=== PATIENT | female | born 1930 | race Caucasian/White ===

== ENCOUNTER 2016-12-16 13:53 | Emergency (ER) | payer MEDICARE, MEDICAID ==
[~2016-12-16] VITALS: Ht 157.4 cm; Wt 56.7 kg
[~2016-12-16 13:53] MED LIST: ALPRAZOLAM0.25 M2 PO; AMLODIPINE BESY10 MG PO; ASPIRIN ADULT L81 M2 PO; ASPIRIN81 M1 PO; ATOXIMETIN-B1 CAP PO; CALCIUM500 M1 PO; COUMADIN2 MG PO; COUMADIN2.5 M1 PO; COUMADIN7.5 M1 PO; Coumadin2 MG PO; Coumadin5 MG PO; Coumadin7.5 MG PO; FE-TABS325 MG PO; FEROSUL325 MG PO; FUROSEMIDE40 MG PO; HCTZ PO; K-LOR 20MEQ20 ME1 PO; LANOXIN0.125 MG PO; LISINOPRIL20 MG PO; LOPRESSOR100 MG PO; METOPROLOL TART50 M1 PO; NORCO 5-325 TA1 EACH PO; NORVASC5 MG PO; NOVOLIN R100 U/ML SC; PEPCID AC20 M1 PO; POTASSIUM20 MEQ PO; PREDNISONE5 MG PO; REMERON15 M2 PO; TOPROL XL100 MG PO; TYLENOL325 M1 PO; TYLENOL650 MG R; VANCO 750750 MG/250 IV; VITAMIN C500 M4 PO; VITAMIN D5000 I2 PO; WARFARIN SOD5 MG PO; ZOCOR20 MG PO
[2016-12-16 15:29] LABS: BASO # 0.1 10*3/uL (0.0-0.1); BASO % 0.6 % (0.0-1.0); EOS # 0.5 10*3/uL (0.0-0.4); EOS % 4.5 % (1.0-4.0); HEMOGLOBIN 12.4 g/dl (12.0-16.0); LYMPH # 1.5 10*3/uL (1.3-4.4); LYMPH % 14.5 % (27.0-41.0); MEAN CELL VOLUME 96.7 fl (81.0-99.0); MEAN CORPUSCULAR HGB 31.6 pg (27.0-31.0); MEAN CORPUSCULAR HGB CONC 32.6 g/dl (33.0-37.0); MEAN PLATELET VOLUME 10.3 fl (9.6-12.3); MONO % 9.4 % (3.0-9.0); NEUT # 7.3 10*3/uL (2.3-7.9); NEUT % 70.7 % (47.0-73.0); PLATELET COUNT AUTOMATED 259 10*3/uL (130-400); RED BLOOD COUNT 3.93 10*6/uL (4.10-5.10); RED CELL DISTRI WIDTH 14.4 % (0-14.5); WHITE BLOOD COUNT 10.3 10*3/uL (4.8-10.8)
[2016-12-16 15:40] LABS: PROTHROMBIN TIME 10.7 SECONDS (9.0-12.4)
[2016-12-16 16:02] LABS: ALBUMIN 3.3 gm/dl (3.1-4.5); ALKALINE PHOSPHATASE 80 U/L (45-117); BILIRUBIN, TOTAL 0.6 mg/dl (0.2-1.0); BUN 26 mg/dl (7-24); CARBON DIOXIDE 29 mmol/L (21-32); CHLORIDE 107 mmol/L (98-107); CPK 124 U/L (26-192); EST GLOM FILT AFRICAN AMERICAN > 60 ml/min; GLUCOSE 104 mg/dL (65-99); LDH 248 U/L (84-246); POTASSIUM 4.5 mmol/L (3.5-5.1); SGOT/AST 23 IU/L (3-35); SGPT/ALT 23 U/L (12-78); SODIUM 145 mmol/L (136-145); TOTAL PROTEIN 6.8 gm/dL (6.4-8.2)
[2016-12-16 16:03] LABS: CKMB 3.1 ng/ml (0.5-3.6)
[2016-12-16 16:12] LABS: DIGOXIN 1.49 ng/ml (0.8-2.0)
[2016-12-16 16:15] LABS: TROPONIN I < 0.015 ng/ml (<0.045)
[2016-12-16] MEDS ORDERED: VOLTAREN GEL1% TP (16:37)
== END 2016-12-16 16:55 | disposition home or self-care (01) ==
LOC: ED 13:53
PROVIDERS: Physician Assistant
DX: S70.02XA Contusion of left hip, initial encounter (principal); Z90.49 Acquired absence of other specified parts of digestive tract; W06.XXXA Fall from bed, initial encounter; Y93.84 Activity, sleeping; Y92.009 Unspecified place in unspecified non-institutional (private) residence as the place of occurrence of the external cause; Y99.9 Unspecified external cause status

== ENCOUNTER 2017-05-03 17:21 | Emergency (ER) | payer MEDICARE, MEDICAID ==
[~2017-05-03] VITALS: Ht 157.4 cm; Wt 56.2 kg
[~2017-05-03 17:21] MED LIST changes: +VOLTAREN GEL1% TP
== END 2017-05-03 20:53 | disposition home or self-care (01) ==
LOC: ED 17:21
DX: S00.31XA Abrasion of nose, initial encounter (principal); M25.511 Pain in right shoulder; Z98.890 Other specified postprocedural states; Z90.49 Acquired absence of other specified parts of digestive tract; Z96.652 Presence of left artificial knee joint; Z79.899 Other long term (current) drug therapy; W06.XXXA Fall from bed, initial encounter; Y93.89 Activity, other specified; Y92.89 Other specified places as the place of occurrence of the external cause; Y99.9 Unspecified external cause status

== ENCOUNTER 2017-09-17 12:52 | Emergency (ER) | payer MEDICARE, MEDICAID ==
[~2017-09-17] VITALS: Ht 157.4 cm; Wt 81.6 kg
[2017-09-17 13:23] LABS: BASO # 0.1 10*3/uL (0.0-0.1); BASO % 0.6 % (0.0-1.0); EOS # 0.4 10*3/uL (0.0-0.4); EOS % 3.3 % (1.0-4.0); HEMATOCRIT 36.1 % (37.0-47.0); HEMOGLOBIN 11.7 g/dl (12.0-16.0); LYMPH # 1.8 10*3/uL (1.3-4.4); LYMPH % 14.7 % (27.0-41.0); MEAN CELL VOLUME 96.3 fl (81.0-99.0); MEAN CORPUSCULAR HGB 31.2 pg (27.0-31.0); MEAN CORPUSCULAR HGB CONC 32.4 g/dl (33.0-37.0); MEAN PLATELET VOLUME 10.4 fl (9.6-12.3); MONO % 7.9 % (3.0-9.0); NEUT % 73.1 % (47.0-73.0); PLATELET COUNT AUTOMATED 276 10*3/uL (130-400); RED BLOOD COUNT 3.75 10*6/uL (4.10-5.10); RED CELL DISTRI WIDTH 14.9 % (0-14.5); WHITE BLOOD COUNT 12.3 10*3/uL (4.8-10.8)
[2017-09-17 13:41] LABS: ALBUMIN 3.4 gm/dl (3.1-4.5); ALKALINE PHOSPHATASE 73 U/L (45-117); BUN 30 mg/dl (7-24); CHLORIDE 104 mmol/L (98-107); POTASSIUM 4.1 mmol/L (3.5-5.1); SGOT/AST 18 IU/L (3-35); SGPT/ALT 20 U/L (12-78); SODIUM 142 mmol/L (136-145); TOTAL PROTEIN 6.8 gm/dL (6.4-8.2)
[2017-09-17 13:42] LABS: TROPONIN I 0.037 ng/ml (<0.045)
[2017-09-17 13:53] LABS: DIGOXIN 1.08 ng/ml (0.8-2.0)
[2017-09-17 14:39] LABS: BILIRUBIN NEGATIVE (NEGATIVE); BLOOD NEGATIVE (NEGATIVE); CLARITY CLEAR (CLEAR); COLOR YELLOW (YELLOW); GLUCOSE NEGATIVE (NEGATIVE); KETONE NEGATIVE (NEGATIVE); LEUKO ESTERASE NEGATIVE (NEGATIVE); NITRITE NEGATIVE (NEGATIVE); SPECIFIC GRAVITY 1.025 (1.005-1.030); UROBILINOGEN 0.2 E.U./dl (0.2-1.0)
[2017-09-17 14:55] LABS: BACTERIA TRACE; WBC 0-2 wbc/hpf (0-5)
== END 2017-09-17 15:20 | disposition home or self-care (01) ==
LOC: ED 12:52
PROVIDERS: Nurse Practitioner Family
DX: B34.9 Viral infection, unspecified (principal); R03.0 Elevated blood-pressure reading, without diagnosis of hypertension; I48.91 Unspecified atrial fibrillation; Z79.899 Other long term (current) drug therapy

== ENCOUNTER 2017-09-26 18:35 | Inpatient (IN) | payer MEDICARE, MEDICAID ==
[2017-09-26] VITALS (9 sets, daily range): BP systolic 66–133; BP diastolic 38–69
[~2017-09-26] VITALS: Ht 152.4 cm; Wt 59.0 kg
--- NOTE | ~2017-09-26 | DS ---
[place], [place] DISCHARGE SUMMARY NAME: AYAN ZHENG UNIT #: [id number] ROOM: 408 DOCTOR: TIRSO LLOYDHORTENCIA J BIRTHDATE: [birth year] DOS: 09/29/2017 DISCHARGE DIAGNOSES: 1. The patient with acute hypoxemic respiratory failure and sepsis with bacterial pneumonia, treated. 2. Late onset Alzheimer's type dementia. 3. Benign essential hypertension. 4. Old age and adult failure to thrive. She had multiple falls. 5. Left upper lobe pneumonia with sepsis, leukocytosis, acute kidney failure and sepsis, resolved. 6. Multi-infarct dementia and mental confusion. 7. Type 2 diabetes mellitus. 8. Chronic atrial fibrillation. 9. Coronary artery disease of [place] vessels, without chest pains. HOSPITAL COURSE: The patient is very high risk for falls and head injury and bleeding, so she is not to be anticoagulated. Generalized anxiety disorder. The patient presented to the Emergency Department, brought over for shortness of breath, weakness, lethargy, hypotension and she was found to be septic. The patient had severe leukocytosis and found to have pneumonia. The patient admitted and treated with antibiotics and white cell count has improved. The patient was also followed by dimension specification inspector, Dr. Sanches and now ready to be discharged to [facility]. Adult failure to thrive and recurrent falls. The patient worked with Physical Therapy, which will be continued at residential facility. Multi-infarct dementia and mental confusion. Type 2 diabetes mellitus. Blood sugars were monitored and treated. The patient kept on no concentrated sweet diet. Chronic atrial fibrillation, with heart rate is controlled with digoxin. The patient was not anticoagulated because of her recurrent falls and high risk for head injury and bleeding. Benign essential hypertension, with better controlled blood pressures now. Coronary artery disease of [place] vessels, without chest pains. Benign essential hypertension, with better controlled blood pressures now. Initially, the patient was hypotensive from sepsis and her blood pressure medications were held back, but then later on they were restarted. Hypokalemia from diuresis, level has returned to normal with extra potassium supplements. Blood cultures were negative. LABORATORY DATA: CT of the chest showing some chronic changes in the left upper [place], [place] DISCHARGE SUMMARY NAME: AYAN ZHENG UNIT #: [id number] ROOM: [facility] DOCTOR: TIRSO LLOYD,HORTENCIA Mckeon BIRTHDATE: [birth year] lobe. Normal serum electrolytes. Hemoglobin 11.8, white cell count improved to 14,500. Blood cultures were negative. DISCHARGE MANAGEMENT: Metoprolol 50 mg twice a day, Tradjenta 5 mg a day, lisinopril 20 mg a day, Meloxicam 7.5 mg daily, rivastigmine 3 mg b.i.d. and in 1 month increase it to 6 mg b.i.d., mirtazapine 15 mg at bedtime, digoxin 125 mcg daily, aspirin 81 mg a day, Augmentin 875 mg twice a day for a week. Consult Physical Therapy, take fall precautions and every 2 hour turning. HORTENCIA CHAHAL MD CM:MAIKOL [id number] HORTENCIA CHAHAL MD 09/29/17 2006 interface
--- NOTE | ~2017-09-26 | CON ---
[place], [place] REPORT OF CONSULTATION NAME: AYAN ZHENG [facility] #: [id number] UNIT #: [id number] ROOM: 408 DOCTOR: JOYCE SCHAFFER MD,RUBEN BIRTHDATE: [birth year] DOS: 09/27/2017 PULMONARY CONSULTATION EVALUATION AND MANAGEMENT CONSULTATION REQUESTED BY: Jeovanny Monroe M.D. REASON FOR CONSULTATION: To assess the patient for current acute pneumonia. The consultation does contain medical record of the patient, essentially review of the medical record, the patient's current hospitalization, other physician notes as well as record of the nursing notes. HISTORY OF PRESENT ILLNESS: This is an 87-year-old white female patient who has been admitted to the hospital under care of Dr. Monroe. The patient was brought to the hospital Emergency Room by the family members as the patient has been noted with a gradual increased confusional status for the past Thursday. The symptoms have been noted with gradual worsening. The patient was also noted with symptoms of low grade fever and nonproductive cough as well. The oral intake was also described to be significantly decreased. She has been admitted to the hospital for further medical management. The patient has been assessed in the Emergency Room yesterday and noted with possibility of acute pneumonia for this patient and had been admitted to the hospital for that. The patient is unable to give any history. She has been noted to have a history of multiinfarct dementia. The patient is unable to verbally communicate. When she has been asked the questions though she states yes to every question. She was noted awake and alert. REVIEW OF SYSTEMS: The patient's review of systems cannot be completed because of the history of multiinfarct dementia. PAST MEDICAL HISTORY: 1. Reported history of multiinfarct dementia. 2. Essential hypertension. 3. History of chronic atrial fibrillation as well. SOCIAL HISTORY: The patient was living at home with her granddaughter. Noted nonsmoker lifetime. Denies alcohol or illicit drug use or any occupation related pulmonary exposure was known from the past. PAST SURGICAL HISTORY: Reported: 1. 4 times. 2. Appendectomy. 3. Complete hysterectomy. 4. Left shoulder arthroplasty. 5. Cardiac catheterization and coronary artery stents insertion in 2009. 6. History of coronary artery disease. FAMILY HISTORY: Reported for coronary artery disease, hypertension, and CVA. HOME MEDICATIONS: 1. Noted use of Tylenol No. 1, 650 mg q.6 hours p.r.n. for pain or fever. [place], [place] REPORT OF CONSULTATION NAME: AYAN ZHENG UNIT #: [id number] ROOM: [facility] DOCTOR: JOYCE SCHAFFER MD,RUBEN BIRTHDATE: [birth year] 2. Multivitamin 1 p.o. daily. 3. Lisinopril 40 mg daily. 4. Vitamin C 500 mg p.o. daily. 5. Remeron 15 mg at bedtime. 6. Potassium chloride 20 mEq p.o. daily. 7. Xanax 0.25 mg q.6 hours p.r.n. for anxiety. DRUG ALLERGY HISTORY: No known drug allergies. PHYSICAL EXAMINATION: GENERAL: This is an 87-year-old female who has been currently known to be awake and alert without any acute distress at this time. Height of the patient is recorded 5 feet, weight of 130 pounds, BMI 25.5 recorded. VITAL SIGNS: For the patient, which has been recorded shows the temperature noted as 100.5 degree Fahrenheit on admission. Later the patient was noted to have low grade fever of 99.5 degree Fahrenheit, respiration rate 20-18, heart rate of 99-117, blood pressure of 80/50, the lowest and high blood pressure 154/74. Intake was recorded as 19-20, the output were not recorded, pulse oxygen saturation recorded on room air on admission as 89%, currently on 2 liters 94% saturation. HEENT: Examination shows head was atraumatic. Eyes nonicterus. NECK: Supple. CARDIOVASCULAR: S1, S2 is audible. LUNGS: The patient was noted [id number] decreased breath sounds bilaterally. There were no wheezing or crackles heard. ABDOMEN: Flat, soft, and nontender. Bowel sounds are present. CENTRAL NERVOUS SYSTEM: Unable to assess the patient accurately, but the patient does move the upper and lower extremities. At times, at her own will. SKIN: Visible skin without lesions or rashes. MUSCULOSKELETAL: Without any acute deformities. LABORATORY DATA: CBC of the patient on admission 09/26/2017, the patient noted to have a glucose 274, BUN 27, creatinine 1.41. The sodium of 135. Lactic acid 2.6 noted on admission. CBC on 09/26/2017 on admission, the white count 17.9, hemoglobin and hematocrit normal, platelet count was normal. Follow up lactic acid 1.6 after fluid resuscitation. CBC this morning that was done 22.3, hemoglobin 12.6, hematocrit 34.9, platelet count 120,000. CMP of the patient of 225, BUN 30, creatinine 1.28, glucose 108. CO2 was 19. Chest x-ray of the patient just 1 view done with the patient shows evidence of patchy infiltration of the left upper lobe. IMPRESSION: 1. The patient who has been currently admitted to the hospital with left upper lobe infiltration with acute pneumonia and sepsis as well as acute hypoxic respiratory failure resulting from that as well. She was also noted to have acute kidney injury, organ dysfunction secondary to acute sepsis. 2. The patient with a history of chronic dementia, change in mental status secondary to acute sepsis as well. 3. Decrease her oral intake as well. The patient with acute kidney injury partly because of the intravascular volume depletion as well. [place], [place] REPORT OF CONSULTATION NAME: AYAN ZHENG UNIT #: [id number] ROOM: [facility] DOCTOR: JOYCE SCHAFFER MD,RUBEN BIRTHDATE: [birth year] PLAN OF TREATMENT: Fluid resuscitation will be completed for this patient. Monitor for any fluid overload. She has been started on IV Zosyn and Zithromax. That will get a coverage for the atypical organism, gram-positive organisms as well as anaerobic organism effectively. Repeat another chest x-ray in the morning to assess the progression of the pneumonia radiologically as well. Monitoring all the culture results for the patient. If the patient does expectorate sputum, the sputum could be sent for culture as well. Otherwise, monitoring the blood cultures. Ordered urine for legionella antigen and the strep antigen as well. Titrate oxygen to maintain a pulse ox of 90% or greater. Usual care, other supportive therapy, plan of management and care. Assessment for swallowing of the patient will be done as well. Modified barium swallow for the patient will ordered for the morning as speech therapy consultation will be obtained as well. Thanks for allowing me to participate in the care of this patient. RUBEN COOK MD CM:CONSTR:REPORT OF CONSULTATION 1352 09/28/17 0241 interface
--- NOTE | ~2017-09-26 | PR ---
[place], [place] PROGRESS NOTE NAME: AYAN ZHENG [facility] #: [id number] UNIT #: [id number] ROOM: 408 DOCTOR: JOYCE SCHAFFER MD,RUBEN BIRTHDATE: [birth year] DOS: 09/29/2017 SUBJECTIVE: The patient has been noted comfortable at this time, noted nonverbal because of history of dementia, has not been reported respiratory distress, change in oxygen requirement. She has not been reported any symptoms of hemoptysis by the nursing staff. She has not been noted any symptoms of chest pain as described by the nursing staff. The patient could not have any verbal communication. Review of systems could not be performed. She has been continued on antibiotic intravenously for the acute pneumonia and severe sepsis. OBJECTIVE: VITAL SIGNS: For the patient's, temperature noted low grade as 99.7 degrees Fahrenheit to normal temperature recorded later on after that and this morning respiratory rate 18, heart rate of 84, blood pressure of 175/83-158/82. Pulse oxygen saturation noted on 2 L nasal cannula 95% saturation. HEENT: Shows head was atraumatic. Eyes nonicterus. NECK: Supple. CARDIOVASCULAR: S1, S2 is audible. LUNGS: The patient was noted without any crackles or wheezing at the present time. ABDOMEN: Noted flat, soft, nontender. Bowel sounds present. EXTREMITIES: The patient was noted without any edema at the present time. MUSCULOSKELETAL: No deformities. CENTRAL NERVOUS SYSTEM: Noted nonfocal since the patient able to move the upper and lower extremities at her own will. LABORATORY DATA: The chest x-ray that was done this morning for the patient shows left upper lobe infiltration was not noted with simple question of infiltration in the left lower lobe was also seen. Bilateral prominent hilar area was also noted. There were no findings of the patient noted of any pleural effusion at least clinically. IMPRESSION: The patient with acute pneumonia with severe sepsis at this time with additional infiltration may be noted in the right lower lobe and resolution of the patchy infiltration of left upper lobe, which was previously noted on one view chest x-ray. Prominent hilar area as well. History of chronic dementia. The patient was still noted with low-grade fever and also noted heart rate elevated at 110 seconds to that. PLAN OF MANAGEMENT: For further clarification, to assess if there is any atelectasis developed in other area. CT scan of chest has been ordered to be done without contrast. Based on the review of the CT scan of the chest, the patient's medical management will be recommended without any changes. The antibiotic continuity is to be the same for the patient at this time. Usual care, other supportive therapy, plan of management and care. [place], [place] PROGRESS NOTE [facility]: [id number] UNIT #: [id number] ROOM: [facility] DOCTOR: RUBEN CHEEK MD BIRTHDATE: [birth year] RUBEN COOK MD CM:PNTRANS [id number] RUBEN SCHAFFER MD 09/29/17 2337 interface
--- NOTE | ~2017-09-26 | PR ---
[place], [place] PROGRESS NOTE [id number] UNIT #: [id number] ROOM: 408 DOCTOR: HORTENCIA CHAHAL MD BIRTHDATE: [birth year] DOS: 09/28/2017 SUBJECTIVE: The patient is starting to feel better working with physical therapy. OBJECTIVE: VITAL SIGNS: Blood pressure 165/75, heart rate 92 beats per minute, breathing 18 times per minute, temperature of 98.3 degrees Fahrenheit. GENERAL APPEARANCE: Obesity and generalized weakness and the patient is pleasantly confused. HEENT AND NECK: Exam within normal limits. CARDIOVASCULAR SYSTEM: Heart rate is regular in rate and rhythm. S1 and S2 normally audible. LUNGS: Clear to auscultation. ABDOMEN: Soft, nontender. No obvious organomegaly. Bowel sounds are present. EXTREMITIES: Without significant cyanosis or edema. IMPRESSION AND PLAN: 1. Benign essential hypertension with elevated blood pressures. I will restart her metoprolol. 2. Old age and adult failure to thrive. The patient normally stays at home with her great granddaughter who takes good care of her. The patient is working with Physical Therapy. She had multiple falls. 3. Left upper lobe pneumonia with sepsis, leukocytosis and acute kidney failure from sepsis, all resolving with treatment. 4. Multi-infarct dementia and mental confusion. The patient remains on Exelon, the dose has been increased. 5. Type 2 diabetes mellitus. Blood sugars are being monitored and treated and the patient on a sugar gluten-free diet. 6. Chronic atrial fibrillation, with heart rate controlled with digoxin. The patient is not a good candidate for anticoagulation because of her multiple falls and high risk for head injury and bleed. HORTENCIA CHAHAL MD CM:PNTRANS [id number] HORTENCIA CHAHAL MD 09/28/17 1312 interface
--- NOTE | ~2017-09-26 | WRIGHTHP ---
[place], [place] PATIENT HISTORY AND PHYSICAL EXAM NAME: AYAN ZHENG [facility] #: [id number] UNIT #: [id number] ROOM: 408 DOCTOR: HORTENCIA CHAHAL MD BIRTHDATE: [birth year] DOS: 09/26/2017 HISTORY OF PRESENT ILLNESS: The patient is an 87-year-old female with a past medical history of: 1. Adult failure to thrive and old age. 2. Chronic atrial fibrillation. The patient is not a good candidate for anticoagulation because of her recurrent injuries. 3. Multi-infarct dementia. 4. History of coronary artery disease of [place] vessels. 5. Benign essential hypertension. 6. Generalized anxiety disorder. The patient presented to the Emergency Department with few days of increasing shortness of breath, weakness, lethargy and she was brought to the Emergency Department from home where she was taken care of by her great granddaughter. In the ER, patient was found to be hypotensive, lethargic and very weak with pneumonia and sepsis with severe leukocytosis. The patient maintained a DNR/comfort care code status, which was confirmed by her family and she was admitted to a regular bed and started on hydration with normal saline and IV antibiotics. After admission, the patient is becoming more alert, but she is weak and unable to provide much history. No complaints of chest pains. No GI or urinary symptoms. REVIEW OF SYSTEMS:. LUNGS: Increased shortness of breath. GASTROINTESTINAL: No nausea, vomiting, diarrhea or constipation, but reduced appetite. CARDIOVASCULAR: No chest pains or palpitations. SOCIAL HISTORY: The patient lives at home with help of her great granddaughter. Denies smoking cigarettes, alcohol and drug abuse. FAMILY HISTORY: Noncontributory. HOME MEDICATIONS: Tradjenta, lisinopril, meloxicam, rivastigmine, mirtazapine, digoxin, aspirin. PHYSICAL EXAMINATION: GENERAL: Awake, alert, pleasantly confused, in no visible distress, generalized weakness and muscle wasting. HEENT AND NECK: Extraocular movements are intact. Sclerae are anicteric. Oral mucosa is moist and clean. No obvious facial weakness. Neck is supple without any lymphadenopathy. No thyromegaly. No JVD. No carotid arterial bruits. LUNGS: Clear to auscultation. No wheezing. No rhonchi. CARDIOVASCULAR SYSTEM: Heart rate is irregularly irregular in rate and rhythm. ABDOMEN: Soft, nontender. No obvious organomegaly. Bowel sounds are present. No obvious herniation. EXTREMITIES: Without significant cyanosis or edema. Warm to touch. CENTRAL NERVOUS SYSTEM: Alert and oriented x 3. Cranial nerves II-XII are intact. Speech is normal. The patient is able to move all extremities. Normal [place], [place] PATIENT HISTORY AND PHYSICAL EXAM NAME: AYAN ZHENG UNIT #: [id number] ROOM: [facility] DOCTOR: HORTENCIA CHAHAL MD BIRTHDATE: [birth year] muscle strength. Deep tendon reflexes are equal on both sides. Plantars were downgoing. LABORATORY DATA: White cell count elevated to 22,300, normal platelets. BUN and creatinine 27 and 1.4, otherwise normal serum electrolytes. IMPRESSION: 1. The patient is old aged and adult failure to thrive. We will get patient to work with Physical Therapy and take fall and bedsore precautions including every 2 hour turning and use an air mattress. 2. Left upper lobe pneumonia with sepsis, leukocytosis and acute kidney failure related to sepsis, is being treated with normal saline and hydration and the patient appears to be clinically improving. The patient also had an elevated lactic acid level of up to 3.5, which has returned to normal with treatment. 3. Multi-infarct dementia. The patient remains on Exelon, which helps her. I will increase the dose. 4. Type 2 diabetes mellitus. Blood sugars will be monitored and treated and she will be kept on no concentrated sweet diet. 5. Chronic atrial fibrillation, heart rate controlled with digoxin. The patient was not kept on any anticoagulation because she is a very high risk and falls repeatedly. She is very high risk for falls and serious bleeding including head injury. 6. Benign essential hypertension. Blood pressures are being monitored and controlled. I will restart her lisinopril because blood pressures are increasing. Metoprolol still on hold. 7. Situation discussed with her great granddaughter in detail today and we will try to get her to jail facility for physical therapy after completing her treatment at the hospital. The patient maintains a do not resuscitate/comfort care code status. HORTENCIA CHAHAL MD CM:HISPHYS:PATIENT HISTORY AND PHYSICAL EXAMINATION [id number] HORTENCIA CHAHAL MD 09/27/17 1703 interface
--- NOTE | ~2017-09-26 | PR ---
[place], [place] PROGRESS NOTE [id number] UNIT #: [id number] ROOM: [facility] DOCTOR: JOYCE SCHAFFER MD,RUBEN BIRTHDATE: [birth year] DOS: 09/28/2017 SUBJECTIVE: The patient was seen and examined on 09/28/2017. She has been noted comfortable at this time, resting on her bed. She has not been noted with any symptoms of hemoptysis or any chest pain. She does have some cough without any sputum expectoration. Does not have any verbal communication. The patient unable to give me any history because of the current dementia but noted comfortable. REVIEW OF SYSTEMS: Could not be performed. OBJECTIVE: VITAL SIGNS: Normal temperature, respirations 18, heart rate 92, blood pressure 165/75. The pulse oxygen saturation with the patient on room air was 94% saturation to 85% saturation. HEENT: No acute change. Head was atraumatic. NECK: Supple. CARDIOVASCULAR: S1, S2 audible. LUNGS: The patient was noted with [id number] decreased breath sounds without any wheeze or crackles. ABDOMEN: Soft, nontender. EXTREMITIES: Without any edema. SKIN: Visible skin, no lesions or rashes. MUSCULOSKELETAL: Without any acute deformities. CENTRAL NERVOUS SYSTEM: The patient appears to be nonfocal and the patient is cooperative with the examination. LABORATORY DATA: BMP today was noted with potassium 3.4, remaining BMP is grossly normal. CBC showed WBC count 13.7, hemoglobin 11, hematocrit 33.3, platelet count 227,000. IMPRESSION: 1. The patient with acute hypoxic respiratory failure with acute sepsis. 2. Acute bacterial pneumonia as well, which has been treated with the antibiotics. Pneumonia could be considered from aspiration. 3. History of chronic dementia. PLAN OF MANAGEMENT: No change in the plan of therapy. Titrate oxygen supplementation to maintain saturation 92% or greater. Continuation of antibiotics and supplementation of the electrolyte imbalance. Ordered a chest x-ray of the patient to be done in the morning to reassess the progression of the current acute pneumonia. All other supportive plan of therapy and care plan. Additional treatment changes to be made for the patient based on the progression of the illness. No new changes need to be made on management today. [place], [place] PROGRESS NOTE NAME: AYAN ZHENG UNIT #: [id number] ROOM: [facility] DOCTOR: RUBEN CHEEK MD BIRTHDATE: [birth year] RUBEN COOK MD CM:PNTRANS [id number] RUBEN SCHAFFER MD 09/28/17 2247 interface
[2017-09-26 19:27] LABS: BILIRUBIN NEGATIVE (NEGATIVE); BLOOD NEGATIVE (NEGATIVE); CLARITY SL CLOUDY (CLEAR); COLOR YELLOW (YELLOW); GLUCOSE NEGATIVE (NEGATIVE); KETONE NEGATIVE (NEGATIVE); LEUKO ESTERASE NEGATIVE (NEGATIVE); NITRITE NEGATIVE (NEGATIVE); PH 5.5 (5.0-9.0); SPECIFIC GRAVITY 1.015 (1.005-1.030); UROBILINOGEN 0.2 E.U./dl (0.2-1.0)
[2017-09-26 19:35] LABS: BASO # 0.1 10*3/uL (0.0-0.1); BASO % 0.5 % (0.0-1.0); EOS % 0.1 % (1.0-4.0); HEMOGLOBIN 14.7 g/dl (12.0-16.0); LYMPH % 5.5 % (27.0-41.0); MEAN CELL VOLUME 94.4 fl (81.0-99.0); MEAN CORPUSCULAR HGB 31.5 pg (27.0-31.0); MEAN CORPUSCULAR HGB CONC 33.4 g/dl (33.0-37.0); MEAN PLATELET VOLUME 10.4 fl (9.6-12.3); MONO % 5.5 % (3.0-9.0); NEUT # 15.7 10*3/uL (2.3-7.9); NEUT % 88.1 % (47.0-73.0); PLATELET COUNT AUTOMATED 352 10*3/uL (130-400); RED BLOOD COUNT 4.66 10*6/uL (4.10-5.10); RED CELL DISTRI WIDTH 14.6 % (0-14.5); WHITE BLOOD COUNT 17.9 10*3/uL (4.8-10.8)
[2017-09-26 19:46] LABS: BACTERIA TRACE; MUCOUS 1+
[2017-09-26 19:52] LABS: CREATININE 1.41 mg/dL (0.55-1.02); POTASSIUM 4.4 mmol/L (3.5-5.1); TOTAL PROTEIN 8.9 gm/dL (6.4-8.2); TROPONIN I 0.025 ng/ml (<0.045)
[2017-09-26] MEDS ORDERED: JANUVIA100 MG PO (22:22)
[2017-09-26] MEDS ORDERED: RIVASTIGMINE T1.5 M1 PO (22:23)
[2017-09-26] MEDS ORDERED: MELOXICAM7.5 MG PO (22:24)
[2017-09-27] VITALS: BP 106/53
[2017-09-27 02:30] VITALS: BP 120/72
[2017-09-27 06:50] LABS: MEAN CELL VOLUME 93.1 fl (81.0-99.0); MEAN CORPUSCULAR HGB CONC 34.4 g/dl (33.0-37.0); MEAN PLATELET VOLUME 11.1 fl (9.6-12.3); RED BLOOD COUNT 3.75 10*6/uL (4.10-5.10); RED CELL DISTRI WIDTH 14.6 % (0-14.5); WHITE BLOOD COUNT 22.3 10*3/uL (4.8-10.8)
[2017-09-27 06:53] LABS: HEMATOCRIT 34.9 % (37.0-47.0); PLATELET COUNT AUTOMATED 220 10*3/uL (130-400)
[2017-09-27 07:14] LABS: CREATININE 1.28 mg/dL (0.55-1.02); POTASSIUM 4.7 mmol/L (3.5-5.1)
[2017-09-27 07:25] LABS: PLATELET SUFFICIENCY NORMAL (NORMAL); TOTAL CELLS COUNTED 100 #CELLS
[2017-09-27 07:29] LABS: DIGOXIN 0.79 ng/ml (0.8-2.0)
[2017-09-27 08:00] VITALS: BP 154/74
[2017-09-27 12:00] VITALS: BP 153/53
[2017-09-27 15:52] VITALS: BP 155/62
[2017-09-27 20:00] VITALS: BP 160/51
[2017-09-28] VITALS: BP 161/94
[2017-09-28 07:00] LABS: BASO # 0.1 10*3/uL (0.0-0.1); BASO % 0.6 % (0.0-1.0); EOS # 0.5 10*3/uL (0.0-0.4); EOS % 3.4 % (1.0-4.0); HEMATOCRIT 33.3 % (37.0-47.0); LYMPH # 1.3 10*3/uL (1.3-4.4); LYMPH % 9.7 % (27.0-41.0); MEAN CORPUSCULAR HGB 31.7 pg (27.0-31.0); MEAN PLATELET VOLUME 10.8 fl (9.6-12.3); NEUT # 10.8 10*3/uL (2.3-7.9); PLATELET COUNT AUTOMATED 227 10*3/uL (130-400); RED BLOOD COUNT 3.47 10*6/uL (4.10-5.10); RED CELL DISTRI WIDTH 14.8 % (0-14.5); WHITE BLOOD COUNT 13.7 10*3/uL (4.8-10.8)
[2017-09-28 07:12] LABS: BUN 23 mg/dl (7-24); CHLORIDE 109 mmol/L (98-107); CREATININE 1.01 mg/dL (0.55-1.02); SODIUM 142 mmol/L (136-145)
[2017-09-28 07:27] LABS: POTASSIUM 3.4 mmol/L (3.5-5.1)
[2017-09-28 08:00] VITALS: BP 165/75
[2017-09-28 12:00] VITALS: BP 160/82
[2017-09-28 16:00] VITALS: BP 158/84
[2017-09-28 20:00] VITALS: BP 160/82
[2017-09-29 02:30] VITALS: BP 158/82
[2017-09-29 07:11] LABS: BASO # 0.1 10*3/uL (0.0-0.1); BASO % 0.6 % (0.0-1.0); EOS # 0.5 10*3/uL (0.0-0.4); EOS % 3.4 % (1.0-4.0); HEMATOCRIT 36.5 % (37.0-47.0); HEMOGLOBIN 11.8 g/dl (12.0-16.0); LYMPH # 1.3 10*3/uL (1.3-4.4); LYMPH % 9.1 % (27.0-41.0); MEAN CELL VOLUME 96.1 fl (81.0-99.0); MEAN CORPUSCULAR HGB 31.1 pg (27.0-31.0); MEAN CORPUSCULAR HGB CONC 32.3 g/dl (33.0-37.0); MEAN PLATELET VOLUME 10.7 fl (9.6-12.3); MONO % 6.9 % (3.0-9.0); NEUT # 11.6 10*3/uL (2.3-7.9); NEUT % 79.7 % (47.0-73.0); PLATELET COUNT AUTOMATED 251 10*3/uL (130-400); RED CELL DISTRI WIDTH 14.4 % (0-14.5); WHITE BLOOD COUNT 14.5 10*3/uL (4.8-10.8)
[2017-09-29 07:29] LABS: CHLORIDE 104 mmol/L (98-107); CREATININE 0.69 mg/dL (0.55-1.02); POTASSIUM 3.8 mmol/L (3.5-5.1); SODIUM 136 mmol/L (136-145)
[2017-09-29 07:32] LABS: BUN 13 mg/dl (7-24)
[2017-09-29 08:00] VITALS: BP 175/83
[2017-09-29 12:00] VITALS: BP 151/70
[2017-09-29 16:00] VITALS: BP 120/75; BP 158/80
[2017-09-29] MEDS ORDERED: AUGMENTIN 875-875 MG PO (16:29)
[2017-09-29] MEDS ORDERED: RIVASTIGMINE TAR3 M1 PO (16:29)
== END 2017-09-29 19:40 | disposition other institution (70) | DRG 871 ==
LOC: ED 18:35 → 4E 20:40 → EDHOLD 20:40 → 5E 20:43 → ICCU 21:10 → 4E 23:11
PROVIDERS: Internal Medicine; Nurse Practitioner Family
DX: A41.9 Sepsis, unspecified organism (principal); J96.01 Acute respiratory failure with hypoxia; N17.9 Acute kidney failure, unspecified; J15.9 Unspecified bacterial pneumonia; I48.2 Chronic atrial fibrillation; E11.9 Type 2 diabetes mellitus without complications; E86.9 Volume depletion, unspecified; G30.1 Alzheimer's disease with late onset; F02.80 Dementia in other diseases classified elsewhere, unspecified severity, without behavioral disturbance, psychotic disturbance, mood disturbance, and anxiety; Z66 Do not resuscitate; F41.1 Generalized anxiety disorder; E87.6 Hypokalemia; I10 Essential (primary) hypertension; Z51.5 Encounter for palliative care; I25.10 Atherosclerotic heart disease of native coronary artery without angina pectoris; R62.7 Adult failure to thrive; Z91.09 Other allergy status, other than to drugs and biological substances; Z79.899 Other long term (current) drug therapy; Z79.82 Long term (current) use of aspirin; Z87.81 Personal history of (healed) traumatic fracture; Z82.49 Family history of ischemic heart disease and other diseases of the circulatory system; Z82.3 Family history of stroke; Z90.49 Acquired absence of other specified parts of digestive tract; Z90.710 Acquired absence of both cervix and uterus

== ENCOUNTER 2018-05-17 14:24 | Inpatient (IN) | payer MEDICARE, MEDICAID ==
[~2018-05-17] VITALS: Ht 152.4 cm; Wt 54.5 kg
--- NOTE | ~2018-05-17 | PROC NOTE ---
[place], [place] PROCEDURE NOTE NAME: AYAN ZEHNG [facility] #: [id number] UNIT #: [id number] ROOM: 523 DOCTOR: BARRETT NICOLE BIRTHDATE: [birth year] DOS: 05/20/2018 MODIFIED BARIUM SWALLOW LOCATION: [facility], room 523, bed 1. ORDERING PHYSICIAN: Dr. Brennan. RADIOLOGIST: Dr. Priest. BACKGROUND INFORMATION: The patient an 87-year-old female who was seen for modified barium swallow. This test was ordered to determine candidacy for p.o. feedings. The patient was admitted with an acute CVA. Further medical history includes dementia, failure to thrive with recurrent falls, CAD, DM, HTN, asthma. Earlier this week, a prior modified barium swallow was conducted, but at that time the patient was not able to participate in the study. Since that time, she is showing an improved alertness and ability to follow commands. She has been attempting to swallow, therefore, this procedure is being completed. The patient is n.p.o. at this time. For today's assessment, she was alert and able to follow simple commands. Oral peripheral examination revealed presence of natural teeth with several teeth missing. Labial skills revealed impaired strength. Lingual skills were impaired in range of motion and strength. The patient was unable to volitionally cough and swallow. METHODS AND MATERIALS USED FOR THE EXAM: The patient was positioned in the lateral plane and the exam was viewed under fluoroscopy. The patient was presented with pureed consistency and nectar thick liquid. The liquid was given by spoon. A cup was attempted; however, due to confusion she was not able to drink by cup at this time. ORAL PHASE: The oral phase of the swallow was represented by moderate dysfunction. Labial seal was reduced with cup with left anterior loss observed. Bolus formation was adequate. Oral transit was moderately impaired. Tongue to palate contact was adequate. Tongue retraction was adequate. [place] functioning was adequate with no nasal regurgitation. PHARYNGEAL PHASE: Unremarkable. ESOPHAGEAL PHASE: This phase of the swallow was not formally assessed during this exam. IMPRESSIONS AND RECOMMENDATIONS: Based upon assessment results, this 87-year-old patient presents with a moderate oral dysphagia, characterized by delayed oral propulsion. Once the bolus reached the posterior oral cavity and the swallow triggered there was no penetration, aspiration or residue. The patient was not able to drink from a cup due to confusion. She needed encouragement and cues during the procedure to open her mouth and take adequate amounts to visualize each consistency. Due to her status solid foods or thin liquids were not assessed at this time. Recommend the patient receive a pureed diet and nectar thick liquids taken by spoon, continued dysphagia therapy is [place], [place] PROCEDURE NOTE NAME: AYAN ZHENG UNIT #: [id number] ROOM: 523 DOCTOR: BARRETT NICOLE BIRTHDATE: [birth year] recommended to further improve swallowing ability for safe diet advancement. Results and recommendations were shared with the patient, her granddaughter and her nurse and they verbalized understanding. Thank you very much for this referral. Should you have any questions regarding this patient, contact the speech pathologist at [phone]. BARRETT NICOLE CM:PROCNOTE:PROCEDURE NOTE [id number] 02 BARRETT NICOLE
--- NOTE | ~2018-05-17 | PR ---
[place], [place] PROGRESS NOTE NAME: AYAN ZHENG [facility] #: [id number] UNIT #: [id number] ROOM: 523 DOCTOR: DEBBY SMITH MD BIRTHDATE: [birth year] DOS: 05/20/2018 SUBJECTIVE: The patient is a little bit more awake and alert, seemed to mumble when questioned, but did not answer any questions appropriately. OBJECTIVE: VITAL SIGNS: Blood pressure is 120/70, pulse of 96, respirations 18, and temperature 97.7. LUNGS: Diminished breath sounds. HEART: Irregular. ABDOMEN: Obese, but soft. EXTREMITIES: Without any edema. LABORATORY DATA: No labs available. Blood sugar was 99 this morning. WBC count is 12.6, hemoglobin 12.3, hematocrit 37.4. Creatinine was 0.83. ASSESSMENT AND PLAN: 1. The patient who presents after acute cerebrovascular accident with generalized weakness and encephalopathy. The patient is awaiting placement to [place]. Modified barium swallow was negative. 2. Chronic atrial fibrillation, not a candidate for anticoagulants. 3. Benign hypertension, controlled. DEBBY SMITH MD CM:PNTRANS 1 DEBBY SMITH MD 05/20/18 0933 interface
--- NOTE | ~2018-05-17 | EKG ---
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
--- NOTE | ~2018-05-17 | CON ---
[place], [place] REPORT OF CONSULTATION [id number] UNIT #: [id number] ROOM: 523 DOCTOR: KIMBERLI HANLEY MD BIRTHDATE: [birth year] DOS: 05/18/2018 CARDIOLOGY CONSULTATION REASON FOR CONSULTATION: Acute stroke, elevated troponin. HISTORY: The patient is an 87-year-old woman who does have a history of paroxysmal atrial fibrillation, previous strokes, coronary artery disease, and dementia. She was brought to the hospital after family members noticed a left-sided facial droop and left-sided weakness. The history is limited because the patient is unable to give any coherent history. Most of the history is obtained from review of old records. ER notes indicate that her left-sided weakness improved and her left facial droop resolved by the time she came to the Emergency Room, but she was still very difficult to understand. She was hospitalized for further management. Please note that her code status is DNR comfort care. Review of the old records indicates that the patient has had paroxysmal atrial fibrillation since 05/2014. She was anticoagulated for a time, but anticoagulation was stopped because of her frailty, tendency to fall, etc. She does have a CHADS-VASc score of 7 indicating a high risk for strokes without anticoagulation. PAST HISTORY: Includes the followin. Remote history of stroke over 20 years ago. 2. Coronary artery disease, status post catheterization with 4 stents placed in 07/2012. Records not available. 3. Hypertension. 4. History of falls with head injury. 5. History of asthma. 6. History of degenerative joint disease. 7. Status post left shoulder and knee replacements. 8. New onset atrial fibrillation noted during hospitalization on 05/13/2014. 9. Hospitalization in 11/2015 with crisis of ambulation due to right knee pain. 10. Hospitalization in 06/2016 with falling. MEDICATIONS: Prior to admission, acetaminophen q. 6 hours p.r.n., aspirin 81 mg daily, clonidine 0.1 mg p.o. daily, digoxin 125 mcg daily, lisinopril 20 mg daily, metoprolol 50 mg q. 12 hours, mirtazapine 15 mg at bedtime, multivitamin 1 capsule daily, rivastigmine 3 mg q. 12 hours and sitagliptin 100 mg daily. ALLERGIES: The patient lists an allergy to TAPE. FAMILY HISTORY: Not available. REVIEW OF SYSTEMS: Very limited by the patient's inability to answer questions. She does admit to discomfort and when asked where she hurts, she points to her lower chest and epigastrium. She denies shortness of breath. SOCIAL HISTORY: The patient is in an extended care facility. She has never [place], [place] REPORT OF CONSULTATION NAME: AYAN ZHENG UNIT #: [id number] ROOM: 523 DOCTOR: KIMBERLI HANLEY MD BIRTHDATE: [birth year] smoked and does not consume alcohol. She is a . PHYSICAL EXAMINATION: GENERAL: She is an elderly white female who is sitting in a chair at the bedside. She is asleep when I came into the room, but does continue to be lethargic. She answers few questions. VITAL SIGNS: Pulse is 80 and slightly irregular on exam. Blood pressure is 154/90. She has a temperature of 99.8. She weighs 54.5 kg and has a body mass index of 23.5. HEENT: Normocephalic and atraumatic. Extraocular muscles are intact. Sclerae are clear. Oral mucosa is moist. Tongue is midline. NECK: Supple. She has no jugular distention. Carotids are full. I heard no bruits. She had no neck or supraclavicular masses. LUNGS: Respirations are unlabored. Her lungs are clear anteriorly and laterally. She has no wheezes or rales. CARDIOVASCULAR: Her heart has an irregularly irregular rhythm. I could not hear any gallops or rubs. There were no murmurs. The PMI was not displaced. She had no precordial heave, lift or thrill. There was no precordial tenderness and no tenderness to the epigastrium. ABDOMEN: Soft and normally active without masses, organomegaly, bruits or tenderness. EXTREMITIES: Showed no edema. Peripheral pulses were diminished, but palpable in the feet. IMAGING DATA: I reviewed her electrocardiogram, which shows sinus rhythm and nonspecific mild ST changes. A chest x-ray showed no consolidation or pleural effusion. The cardiomediastinal silhouette was normal in size and there was no acute process. A brain CT showed no acute intracranial process. There are chronic left frontal and bilateral chronic parietal lobe infarcts. LABORATORY DATA: Hemoglobin is 12.1, white count 11,400, platelet count 325,000. Chemistry shows sodium 141, potassium 4.3, BUN 33, creatinine 1.25. Troponin was elevated at 2.53. IMPRESSION: 1. Right hemispheric stroke. Symptoms have improved and her CAT scan shows no evidence for intracranial hemorrhage. 2. Paroxysmal atrial fibrillation. The patient has been documented to be in atrial fibrillation in the past and her exam suggests atrial fibrillation now, even though her admission EKG showed sinus rhythm. The patient is not on a monitor because of her DNR comfort care status. 3. Probable multiple cardioembolic phenomena in the past with bilateral strokes present on CT scan of the head. 4. [id number] score equals 7 consistent with extremely high risk for future cardioembolic phenomena. 5. Elevated troponin, probably due to acute myocardial infarction. It is unclear whether this represents an atherosclerotic event or a cardioembolic event. The patient does complain of some chest discomfort. 6. Dementia, which may be due to multiple previous infarctions. [place], [place] REPORT OF CONSULTATION NAME: AYAN ZHENG UNIT #: [id number] ROOM: 523 DOCTOR: KIMBERLI HANLEY MD BIRTHDATE: [birth year] PLAN: For now, I will treat her with topical nitrates. She is being kept n.p.o. because of concerns regarding swallowing. We should resume her beta blockers when she is allowed to eat. I will be checking a digoxin level to rule out digoxin toxicity. We will start subcutaneous Lovenox for management of possible acute coronary syndrome and stroke prophylaxis as well as DVT prophylaxis in the long run; however, I think that comfort care is an appropriate management strategy for this woman and I will not be doing any further cardiac evaluation aside from empiric therapies. I thank Dr. Monroe for asking our advice regarding her care. KIMBERLI HANLEY MD CM:CONSTR:REPORT OF CONSULTATION 0851 05/18/18 1744 interface
--- NOTE | ~2018-05-17 | DS ---
[place], [place] DISCHARGE SUMMARY NAME: AYAN ZHENG [facility] #: [id number] UNIT #: [id number] ROOM: 523 DOCTOR: HORTENCIA CHAHAL MD BIRTHDATE: [birth year] DOS: 05/20/2018 DISCHARGE DIAGNOSES: 1. Swallowing dysfunction. The patient is able to swallow pureed diet with nectar thick liquids. 2. 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 3. Benign essential hypertension. 4. Positive cardiac enzymes, evaluated by Cardiology. 5. Late onset Alzheimer's type dementia. 6. Chronic atrial fibrillation. 7. Advanced adult failure to thrive. 8. Type 2 diabetes mellitus. 9. Coronary artery disease of [place] vessels, without chest pains. HOSPITAL COURSE: The patient admitted to [facility] with left hemiparesis from a new stroke with left-sided facial droop. The patient's family was consulted and they wanted her treated conservatively and not sent out to a stroke center. The patient also had difficulty with speaking and left facial droop had improved. The patient was seen in the Emergency Department by Dr. Nasir Acosta, the Emergency Department physician and he was admitted to [facility]. The patient was taken for modified barium swallowing study and as mentioned above she is able to swallow pureed diet with nectar thick liquids. The patient's family would not consider PEG tube placement for nutrition because the patient apparently did not want to this kind of treatment. The patient had old age, advanced disability and left hemiparesis, being transferred to [facility] for continued treatment. Situation discussed with her granddaughter today who also works at [facility]. Benign essential hypertension, treated and controlled, blood pressures were monitored. Late onset Alzheimer's type dementia, treated with rivastigmine. Chronic atrial fibrillation, heart rates controlled with digoxin. The patient is not a good candidate for anticoagulation because of high risk for bleeding and now maintained a DNR comfort care code status. LABORATORY DATA: Modified barium swallowing studies as mentioned above. Blood cultures were negative. White cell count of 12,600. Digoxin level of 0.72. CT of the head showing chronic left frontal and bilateral chronic parietal lobe infarcts. DISCHARGE MANAGEMENT: Digoxin 125 mcg daily, clonidine 0.1 mg b.i.d., aspirin 81 mg a day, rivastigmine 3 mg b.i.d., give Augmentin 875 mg b.i.d. for 5 more days, then to be stopped. [place], [place] DISCHARGE SUMMARY NAME: AYAN ZHENG UNIT #: [id number] ROOM: 523 DOCTOR: HORTENCIA CHAHAL MD BIRTHDATE: [birth year] HORTENCIA CHAHAL MD CM:DISCHARG 58 16 HORTENCIA CHAHAL MD 05/20/181917 interface
--- NOTE | ~2018-05-17 | PR ---
[place], [place] PROGRESS NOTE [id number] UNIT #: [id number] ROOM: 523 DOCTOR: DEBBY SMITH MD BIRTHDATE: [birth year] DOS: SUBJECTIVE: The patient is about the same. Does not have much response ____ she wants to keep pulling the sheet up and does not want to be touched. OBJECTIVE: VITAL SIGNS: Pressure is 118/60, pulse of 75, respirations 20, temperature 98.3. LUNGS: Clear. HEART: Irregular. ABDOMEN: Obese. EXTREMITIES: Without any edema. ASSESSMENT AND PLAN: 1. Acute cerebrovascular accident. The patient's overall prognosis remains poor and guarded. We will plan on discharging her to rehab facility. 2. History of chronic atrial fibrillation, not a candidate for Coumadin, apparently the patient was in sinus rhythm on admission. 3. Elevated troponin, possibly from an acute myocardial infarction. 4. Dementia. Barium swallow was negative. Social Service has been consulted for placement to [facility]. 5. Low-grade fever, possibly from the acute [employer] process versus underlying infection, possibly urinary tract infection. Urine culture will be sent. Blood cultures will be ordered, if she spikes again. DEBBY SMITH MD CM:PNTRANS 1502 26 DEBBY SMITH MD 05/19/181826 interface
--- NOTE | ~2018-05-17 | WRIGHTHP ---
[place], [place] PATIENT HISTORY AND PHYSICAL EXAM NAME: AYAN ZHENG [facility] #: [id number] UNIT #: [id number] ROOM: 523 DOCTOR: HORTENCIA CHAHAL MD BIRTHDATE: [birth year] DOS: 05/17/2018 HISTORY OF PRESENT ILLNESS: The patient is an 87-year-old female with a past medical history of: 1. Late onset Alzheimer's type dementia. 2. Benign essential hypertension. 3. Old age and adult failure to thrive with recurrent falls. 4. Type 2 diabetes mellitus. 5. Chronic atrial fibrillation. 6. Coronary artery disease of the [place] vessels without chest pains. The patient with old age and failure to thrive presented to the Emergency Department with left-sided weakness and difficulty with swallowing and left-sided facial droop. Symptoms started at 1405 hours yesterday. The patient also had difficulty speaking. The patient's left facial droop had resolved by the time she got to the Emergency Department and left-sided weakness was somewhat improving. Dr. Nasir Acosta, the ER physician discussed this with the family and they wanted her treated conservatively and kept at [facility]. The patient was given rectal aspirin because there was some concern about her swallowing function. The patient's family wanted her to be on comfort care measures only and she was admitted with n.p.o. status and normal saline infusion with speech consult. After admission, the patient is not communicating much, but she does followup basic commands. REVIEW OF SYSTEMS: RESPIRATORY: No increasing shortness of breath. GASTROINTESTINAL: No nausea, vomiting, diarrhea, constipation, but she cannot swallow. Speech therapy consult is pending. CARDIOVASCULAR: No chest pains or palpitations. FAMILY HISTORY: Noncontributory. HOME MEDICATIONS: Digoxin, aspirin, metoprolol, rivastigmine. PAST MEDICAL HISTORY: Chronic atrial fibrillation, generalized weakness, adult failure to thrive and recurrent falls, late onset Alzheimer's type dementia, ALLERGIES: No known drug allergies. Only allergic to TAPE. PHYSICAL EXAMINATION: GENERAL: Awake, alert, follows basic commands, otherwise the patient has weakness in left upper and lower extremities, which are not moving. The patient barely communicates and generalized weakness. CARDIOVASCULAR SYSTEM: She has an irregularly irregular heart rate and rhythm. HEENT AND NECK: Extraocular movements are intact. Sclerae are anicteric. Oral mucosa is moist and clean. No obvious facial weakness. Neck is supple without any lymphadenopathy. No thyromegaly. No JVD. No carotid arterial bruits. LUNGS: Clear to auscultation. No wheezing. No rhonchi. ABDOMEN: Soft, nontender. No obvious organomegaly. Bowel sounds are present. No obvious herniation. [place], [place] PATIENT HISTORY AND PHYSICAL EXAM [facility]: [facility]ENG [facility] [id number] UNIT #: [id number] ROOM: 523 DOCTOR: HORTENCIA CHAHAL MD BIRTHDATE: [birth year] EXTREMITIES: Without significant cyanosis or edema. Warm to touch. CENTRAL NERVOUS SYSTEM: Alert and oriented x 3. Cranial nerves II-XII are intact. Deep tendon reflexes are equal on both sides. Plantars were downgoing. LABORATORY DATA: BUN and creatinine 33 and 1.2. Troponin level elevated at 2.5. IMPRESSION AND PLAN: 1. The patient with cerebrovascular accident and left hemiparesis with speech impairment and swallowing impairment. Modified barium swallowing study with speech therapy has been ordered. The patient's family wanted her treated conservatively with a DNR-CC code status. We are taking bedsore precautions using an air mattress along with every 2 hour turning and the patient is n.p.o. 2. Benign essential hypertension, to be treated with clonidine. 3. Positive cardiac enzymes, two more sets to be done. Dr. Murphy from Cardiology is following. The patient remains on aspirin. There were no complaints of chest pains. 4. Late onset Alzheimer's type dementia. The patient continued on Exelon in form of a patch because she is unable to swallow. 5. Chronic atrial fibrillation, heart rate to be controlled with digoxin. Her digoxin was converted into IV. 6. Advance adult failure to thrive, recurrent falls with new left hemiparesis. HORTENCIA CHAHAL MD CM:HISPHYS:PATIENT HISTORY AND PHYSICAL EXAMINATION 7 6 HORTENCIA CHAHAL MD 05/18/18 0958 interface
--- NOTE | ~2018-05-17 | PR ---
[place], [place] PROGRESS NOTE NAME: AYAN ZHENG [facility] #: [id number] UNIT #: [id number] ROOM: 523 DOCTOR: KIMBERLI HANLEY MD BIRTHDATE: [birth year] DOS: 05/19/2018 CARDIOLOGY PROGRESS NOTE SUBJECTIVE: The patient was seen at her bedside today 05/19/2018 for followup of her paroxysmal atrial fibrillation, previous strokes, coronary artery disease and a history of dementia. The patient is more awake and alert today, but appears very confused, restless, and her speech remains unintelligible. She denied any chest pain today, as best I can tell and seems to be breathing easily. PHYSICAL EXAMINATION: VITAL SIGNS: Her pulse is 97 and slightly irregular. Blood pressure is 120/62. She is afebrile. NECK: Supple. She has no jugular distention. Carotids are full. LUNGS: Respirations are unlabored. Her chest is clear. HEART: Has an irregularly irregular rhythm. ABDOMEN: Benign. EXTREMITIES: Showed no edema. LABORATORY STUDIES: Do show an increase in troponin on admission, which has fallen in a pattern consistent with myocardial infarction at the time of her admission or shortly before. IMPRESSION: 1. Remote history of stroke over 20 years ago. 2. Coronary artery disease, status post catheterization with 4 stents placed in 07/2012. Records not available. 3. Hypertension. 4. Probable multiple cardioembolic phenomena in the past with bilateral strokes present on the CT scan of her head. 5. [id number] score of 7 consistent with extremely high risk for future cardioembolic phenomena. 6. Acute myocardial infarction prior to admission, most likely this represents either an atherosclerotic event or cardioembolic event. At this point, the patient has no obvious chest discomfort. 7. Dementia, which may be due to multiple previous infarctions. PLAN: The patient's blood pressure is well controlled at the present time. I think we could keep her on topical nitrates. When she is able to take p.o., she should be placed back on aspirin. Her digoxin level at 0.7 is therapeutic and so we could continue the current dose of digoxin. No other cardiac evaluation is planned and our goal is comfort care only, so medicine should be used to advance that goal. We will sign off, but will remain available as needed and I thank Dr. Monroe for asking our advice regarding her care. [place], [place] PROGRESS NOTE NAME: AYAN ZHENG UNIT #: [id number] ROOM: 523 DOCTOR: KIMBERLI HANLEY MD BIRTHDATE: [birth year] KIMBERLI HANLEY MD CM:PNTRANS 51 25 KIMBERLI HANLEY MD 05/19/181925 interface
[~2018-05-17 14:24] MED LIST changes: +AUGMENTIN 875-875 MG PO; +JANUVIA100 MG PO; +MELOXICAM7.5 MG PO; +RIVASTIGMINE T1.5 M1 PO; +RIVASTIGMINE TAR3 M1 PO
[2018-05-17 14:40] VITALS: BP 155/72
[2018-05-17 15:06] LABS: BASO # 0.1 10*3/uL (0.0-0.1); BASO % 0.4 % (0.0-1.0); EOS # 0.2 10*3/uL (0.0-0.4); EOS % 1.6 % (1.0-4.0); HEMATOCRIT 37.3 % (37.0-47.0); HEMOGLOBIN 12.1 g/dl (12.0-16.0); LYMPH # 1.3 10*3/uL (1.3-4.4); LYMPH % 11.6 % (27.0-41.0); MEAN CELL VOLUME 97.1 fl (81.0-99.0); MEAN CORPUSCULAR HGB 31.5 pg (27.0-31.0); MEAN CORPUSCULAR HGB CONC 32.4 g/dl (33.0-37.0); MEAN PLATELET VOLUME 10.9 fl (9.6-12.3); MONO # 0.8 10*3/uL (0.1-1.0); MONO % 6.7 % (3.0-9.0); NEUT # 9.1 10*3/uL (2.3-7.9); NEUT % 79.4 % (47.0-73.0); PLATELET COUNT AUTOMATED 325 10*3/uL (130-400); RED BLOOD COUNT 3.84 10*6/uL (4.10-5.10); WHITE BLOOD COUNT 11.4 10*3/uL (4.8-10.8)
[2018-05-17 15:22] LABS: ALBUMIN 3.8 gm/dl (3.1-4.5); CREATININE 1.25 mg/dL (0.55-1.02); POTASSIUM 4.3 mmol/L (3.5-5.1); TOTAL PROTEIN 7.4 gm/dL (6.4-8.2)
[2018-05-17 15:30] LABS: TROPONIN I 2.53 ng/ml (<0.045)
[2018-05-17 16:00] VITALS: BP 134/91
[2018-05-17] MEDS ORDERED: 'CLONIDINE0.1 MG PO (16:09)
[2018-05-17] MEDS ORDERED: JANUVIA50 MG PO (16:13)
[2018-05-17] MEDS ORDERED: JANUVIA100 MG PO (16:50)
[2018-05-17 20:00] VITALS: BP 160/90
[2018-05-18] VITALS (7 sets, daily range): BP systolic 139–196; BP diastolic 60–92
[2018-05-19] VITALS: BP 162/80
[2018-05-19 08:00] VITALS: BP 170/90
[2018-05-19 10:16] VITALS: BP 148/74
[2018-05-19 12:00] VITALS: BP 118/60
[2018-05-19 16:00] VITALS: BP 120/62
[2018-05-19 20:00] VITALS: BP 118/74
[2018-05-20] VITALS: BP 120/70
[2018-05-20 06:57] LABS: BASO # 0.1 10*3/uL (0.0-0.1); BASO % 0.4 % (0.0-1.0); EOS % 0.2 % (1.0-4.0); HEMATOCRIT 37.4 % (37.0-47.0); HEMOGLOBIN 12.3 g/dl (12.0-16.0); LYMPH # 0.8 10*3/uL (1.3-4.4); LYMPH % 6.6 % (27.0-41.0); MEAN CELL VOLUME 95.4 fl (81.0-99.0); MEAN CORPUSCULAR HGB 31.4 pg (27.0-31.0); MEAN CORPUSCULAR HGB CONC 32.9 g/dl (33.0-37.0); MEAN PLATELET VOLUME 11.1 fl (9.6-12.3); MONO # 1.3 10*3/uL (0.1-1.0); MONO % 10.4 % (3.0-9.0); NEUT # 10.3 10*3/uL (2.3-7.9); PLATELET COUNT AUTOMATED 287 10*3/uL (130-400); RED BLOOD COUNT 3.92 10*6/uL (4.10-5.10); RED CELL DISTRI WIDTH 13.9 % (0-14.5); WHITE BLOOD COUNT 12.6 10*3/uL (4.8-10.8)
[2018-05-20 07:17] LABS: CREATININE 0.83 mg/dL (0.55-1.02)
[2018-05-20 08:00] VITALS: BP 160/70
[2018-05-20 12:00] VITALS: BP 158/68
[2018-05-20 16:00] VITALS: BP 158/78
== END 2018-05-20 20:32 | disposition other institution (70) | DRG 65 ==
LOC: ED 14:24 → 5E 15:06 → EDHOLD 15:06 → 5E 15:22
PROVIDERS: Emergency Medicine
PROC: BD11YZZ Fluoroscopy of Esophagus using Other Contrast (ICD-10-PCS; principal; 2018-05-20)
DX: I63.9 Cerebral infarction, unspecified (principal); G81.94 Hemiplegia, unspecified affecting left nondominant side; I48.0 Paroxysmal atrial fibrillation; I48.2 Chronic atrial fibrillation; I10 Essential (primary) hypertension; Z66 Do not resuscitate; G30.1 Alzheimer's disease with late onset; F02.80 Dementia in other diseases classified elsewhere, unspecified severity, without behavioral disturbance, psychotic disturbance, mood disturbance, and anxiety; I25.10 Atherosclerotic heart disease of native coronary artery without angina pectoris; E11.9 Type 2 diabetes mellitus without complications; R62.7 Adult failure to thrive; Z51.5 Encounter for palliative care; J45.909 Unspecified asthma, uncomplicated; Z96.612 Presence of left artificial shoulder joint; Z96.652 Presence of left artificial knee joint; Z79.82 Long term (current) use of aspirin; Z79.899 Other long term (current) drug therapy; Z91.048 Other nonmedicinal substance allergy status